=== PATIENT | female | born 1980 | race Caucasian/White ===

== ENCOUNTER 2020-11-21 12:46 | Observation (INO) | payer MEDICAID ==
[~2020-11-21] VITALS: Ht 160 cm; Wt 88.0 kg
== END 2020-11-21 16:35 | disposition home or self-care (01) ==
LOC: 8 EST LDRP 12:46
PROVIDERS: ADMIT Obstetrics & Gynecology; ATTEND Obstetrics & Gynecology
DX: O99.891 Other specified diseases and conditions complicating pregnancy (principal); M79.89 Other specified soft tissue disorders; O09.523 Supervision of elderly multigravida, third trimester; O48.0 Post-term pregnancy; Z3A.40 40 weeks gestation of pregnancy
CPT/HCPCS: 59025; 76805; 76818; G0378; 99281

== ENCOUNTER 2020-11-21 16:52 | Emergency (ER) | payer MEDICAID ==
[~2020-11-21] VITALS: Ht 160 cm; Wt 88.0 kg
[2020-11-21 18:53] VITALS: BP 119/61
== END 2020-11-21 18:55 | disposition home or self-care (01) ==
LOC: ER 16:52
DX: O26.893 Other specified pregnancy related conditions, third trimester (principal); S93.402A Sprain of unspecified ligament of left ankle, initial encounter; Z3A.37 37 weeks gestation of pregnancy; W10.8XXA Fall (on) (from) other stairs and steps, initial encounter; Y93.89 Activity, other specified; Y92.018 Other place in single-family (private) house as the place of occurrence of the external cause
CPT/HCPCS: 73610; 99283

== ENCOUNTER 2020-12-09 02:34 | Inpatient (IN) | payer MEDICAID ==
[~2020-12-09] VITALS: Ht 160 cm; Wt 93.0 kg
[2020-12-09] MEDS ORDERED: LACTATED RINGERS 1,000 ML IV SCH (03:15)
[2020-12-09] MEDS ORDERED: BUTORPHANOL TARTRATE 2 MG/ML VIAL IV PRN (03:45)
[2020-12-09] MEDS ORDERED: PENICILLIN G POTASSIUM 5 MMU in DEXT 5% WATER 100 ML IV SCH (04:00)
[2020-12-09] MEDS ORDERED: DEXT 5%/LR + PITOCIN 20UNITS/L 1,000 ML IV SCH ×2 (04:45→05:15)
[2020-12-09 04:52] LABS: BASOPHILS % 0.5 % (0.0-2.0); EOSINOPHILS % 0.2 % (0.0-5.0); HEMATOCRIT. 30.2 % (36.0-48.0); HEMOGLOBIN. 9.2 g/dL (12.0-16.0); LYMPHOCYTES % 14.4 % (20.0-50.0); MEAN CORPUSCULAR HEMOGLOBIN 19.4 pg (28.0-32.0); MEAN CORPUSCULAR VOLUME 63.6 fL (81.0-99.0); MEAN PLATELET VOLUME 9.5 fl (7.4-10.4); MONOCYTES % 2.8 % (2.0-8.0); NEUTROPHILS % 82.1 % (40.0-76.0); PLATELET 222 x1000/uL (130-400); RED BLOOD CELL COUNT 4.74 mill/uL (4.2-5.4); RED CELL DISTRIBUTION WIDTH 19.2 % (11.6-14.6)
[2020-12-09 04:55] LABS: CHLORIDE 110 mEq/L (98-107)
[2020-12-09] MEDS ORDERED: LIDOCAINE HCL 1% 20ML VIAL (Pyxis) INJ ONE (04:56)
[2020-12-09] MEDS ORDERED: LIDOCAINE HCL 1% 20ML VIAL (Pyxis) INJ INFIL ONE (05:00)
[2020-12-09 05:04] LABS: INR 0.9; PARTIAL THROMBOPLASTIN TIME 23.5 sec (23.4-31.0); PROTHROMBIN TIME 9.8 sec (9.6-11.0)
[2020-12-09] MEDS ORDERED: ACETAMINOPHEN WITH CODEINE 300/30MG TABLET PO PRN (05:15)
[2020-12-09] MEDS ORDERED: BISACODYL 10MG SUPP PR PRN (05:15)
[2020-12-09] MEDS ORDERED: IBUPROFEN 400MG TABLET PO PRN (05:15)
[2020-12-09] MEDS ORDERED: BENZOCAINE/LANOLIN/ALOE VERA SPRAY TOP PRN (05:15)
[2020-12-09] MEDS ORDERED: DIPHENHYDRAMINE 25MG CAPSULE PO PRN (05:15)
[2020-12-09] MEDS ORDERED: GLYCERIN/WITCH HAZEL LEAF MEDICATED PAD TOP PRN (05:15)
[2020-12-09] MEDS ORDERED: LANOLIN OINT 7GM TUBE TOP PRN (05:15)
[2020-12-09] MEDS ORDERED: RHO(D) IMMUNE GLOBULIN 300 MCG/SYR IM PRN (05:15)
[2020-12-09] MEDS ORDERED: IBUPROFEN 800MG TABLET PO PRN (05:15)
[2020-12-09] MEDS ORDERED: HEMORRHOIDAL SUPP PR PRN (05:15)
[2020-12-09 05:41] LABS: HEPATITIS B SURFACE ANTIGEN NEGATIVE
[2020-12-09 06:03] LABS: CLARITY URINE CLEAR (CLEAR); COLOR URINE DARK YELLOW (YELLOW); KETONES URINE 2+ (NEGATIVE); LEUKOCYTE ESTERASE URINE TRACE (NEGATIVE); NITRITE URINE NEGATIVE (NEGATIVE); OCCULT BLOOD URINE NEGATIVE (NEGATIVE); PROTEIN URINE 3+ (NEGATIVE); SPECIFIC GRAVITY URINE 1.028 (1.005-1.030)
[2020-12-09 06:50] VITALS: BP 120/73
[2020-12-09 07:26] LABS: *AMPHETAMINES SCREEN URINE NEGATIVE (NEGATIVE)
[2020-12-09 07:27] LABS: *BARBITURATES SCREEN URINE NEGATIVE (NEGATIVE); *BENZODIAZEPINES SCREEN URINE NEGATIVE (NEGATIVE); *COCAINE SCREEN URINE NEGATIVE (NEGATIVE)
[2020-12-09 07:28] LABS: CANNABINOID URINE SCREEN NEGATIVE (NEGATIVE); METHADONE URINE SCREEN NEGATIVE (NEGATIVE); OPIATES URINE SCREEN NEGATIVE (NEGATIVE); PHENCYCLIDINE URINE SCREEN NEGATIVE (NEGATIVE)
[2020-12-09] MEDS ORDERED: PENICILLIN G POTASSIUM 2.5 MMU in DEXTROSE 5% WATER 50 ML IV SCH (08:00)
[2020-12-09 08:06] LABS: PLATELET ESTIMATE NORMAL
[2020-12-09] MEDS ORDERED: OXYTOCIN 10 UNITS/ML 1ML ONE (08:18)
[2020-12-09] MEDS ORDERED: INFLUENZA VACCINE 05/PF 0.5 ML SYRINGE IM ONE (12:00)
[2020-12-09] MEDS: PRENATAL VIT/FE FUMARATE/FA TABLET PO SCH (13:49)
[2020-12-09 15:26] VITALS: BP 110/73
[2020-12-09 19:30] VITALS: BP 116/69
[2020-12-09] MEDS ORDERED: DOCUSATE SODIUM 100MG CAPSULE PO SCH (21:00)
[2020-12-09] MEDS ORDERED: TETANUS, DIPHTHERIA, PERTUSSIS VAC/PF 0.5ML (>10YR OLD) IM ONE (21:00)
[2020-12-09] MEDS: SIMETHICONE 80MG TABLET CHEW PO SCH (21:24)
[2020-12-09] MEDS: MAGNESIUM/ALUMINUM HYDROXIDE/SIMETHICONE 30ML UDC PO SCH (21:24)
[2020-12-10 04:00] VITALS: BP 106/65
[2020-12-10 07:30] VITALS: BP 111/70
[2020-12-10] MEDS: SIMETHICONE 80MG TABLET CHEW PO SCH ×4 (08:17→21:14)
[2020-12-10] MEDS: MAGNESIUM/ALUMINUM HYDROXIDE/SIMETHICONE 30ML UDC PO SCH ×4 (08:17→21:14)
[2020-12-10] MEDS: PRENATAL VIT/FE FUMARATE/FA TABLET PO SCH (08:17)
[2020-12-10] MEDS: FERROUS SULFATE 325MG TABLET PO SCH ×3 (08:17→19:15)
[2020-12-10 10:25] LABS: BASOPHILS % 0.6 % (0.0-2.0); EOSINOPHILS % 1.5 % (0.0-5.0); HEMATOCRIT. 25.9 % (36.0-48.0); HEMOGLOBIN. 7.9 g/dL (12.0-16.0); MEAN CORPUSCULAR HEMOGLOBIN 19.7 pg (28.0-32.0); MEAN CORPUSCULAR VOLUME 64.9 fL (81.0-99.0); MEAN PLATELET VOLUME 9.8 fl (7.4-10.4); MONOCYTES % 3.2 % (2.0-8.0); NEUTROPHILS % 70.7 % (40.0-76.0); PLATELET 215 x1000/uL (130-400); RED BLOOD CELL COUNT 3.99 mill/uL (4.2-5.4); RED CELL DISTRIBUTION WIDTH 19.1 % (11.6-14.6)
[2020-12-10 19:30] VITALS: BP 113/76
[2020-12-11 03:53] VITALS: BP 106/65
[2020-12-11 07:30] VITALS: BP 108/72
[2020-12-11] MEDS ORDERED: IBUP-2030 PO (08:34)
[2020-12-11] MEDS: PRENATAL VIT/FE FUMARATE/FA TABLET PO SCH (08:49)
[2020-12-11] MEDS: MAGNESIUM/ALUMINUM HYDROXIDE/SIMETHICONE 30ML UDC PO SCH (08:49)
[2020-12-11] MEDS: FERROUS SULFATE 325MG TABLET PO SCH (08:49)
[2020-12-11] MEDS: SIMETHICONE 80MG TABLET CHEW PO SCH (08:50)
== END 2020-12-11 12:20 | disposition home or self-care (01) | DRG 560 ==
LOC: 8 EST LDRP 02:34 → OBSVTOIN 02:34 → 8EST 06:43
PROVIDERS: ADMIT Specialist; ATTEND Specialist
PROC: 10E0XZZ Delivery of Products of Conception, External Approach (ICD-10-PCS; principal; 2020-12-09)
PROC: 0KQM0ZZ Repair Perineum Muscle, Open Approach (ICD-10-PCS; 2020-12-09)
DX: O70.1 Second degree perineal laceration during delivery (principal); Z37.0 Single live birth; Z20.822 Contact with and (suspected) exposure to COVID-19; Z3A.39 39 weeks gestation of pregnancy
CPT/HCPCS: 36415; 80053; 80305; 81003; 85025; 85384; 86592; 86703; 86762; 86850; 86900; 87340; 87426; 90686; 90715; 99281; J0595; J2540; J2590; J3490; J7060; A4315